=== PATIENT | female | born 1940 ===

== ENCOUNTER 2021-06-21 07:51 | Emergency (ER) | payer OTHER ==
[~2021-06-21] VITALS: Ht 167.6 cm; Wt 66.2 kg
[2021-06-21] MEDS ORDERED: SODIUM CHLORIDE 0.9% 1,000 ML IV ONE (09:00)
[2021-06-21 10:52] LABS: Basophils # (auto) 0.1 10 ^3/uL (0-0.2); Basophils % (auto) 0.9 % (0.0-2.0); Eosinophils # (auto) 0 10 ^3/uL (0-0.8); Eosinophils % (auto) 0.7 % (0.0-7.0); Hematocrit 45.3 % (36.0-46.0); Hemoglobin 15.1 g/dL (12.2-16.2); Lymphocytes # (auto) 1.1 10 ^3/uL (0.4-5.4); Lymphocytes % (auto) 19.3 % (10.0-50.0); Mean Corpuscular Hemoglobin 30.6 pg (28.0-32.0); Mean Corpuscular Hgb Conc. 33.4 g/dL (32.0-36.0); Mean Corpuscular Volume 91.6 fL (80.0-100.0); Monocytes # (auto) 0.4 10 ^3/uL (0-1.3); Monocytes % (auto) 6.5 % (0.0-12.0); Neutrophils % (auto) 72.6 % (37.0-80.0); Nucleated Red Blood Cells % 0.3 %; Red Blood Cells 4.94 10^6/uL (4.0-5.20); Red Cell Distribution Width 12.9 % (11.8-14.3); White Blood Cell 5.5 10^3/uL (4.4-10.8)
[2021-06-21] MEDS ORDERED: HYDROcodone-ACET 5/325MG TAB PO ONE (11:00)
[2021-06-21] MEDS ORDERED: cloNIDine HCL 0.1 MG TAB PO ONE (11:00)
[2021-06-21 11:46] LABS: Potassium 4.6 mmol/L (3.5-5.1)
[2021-06-21 12:00] LABS: Albumin 3.2 g/dL (3.4-5.0); BUN/Creatinine Ratio 12.5; Bilirubin, Total 0.6 mg/dL (0.2-1.0); Calcium 9.1 mg/dL (8.5-10.1); Total Protein 8.2 g/dL (6.4-8.2)
[2021-06-21 13:49] LABS: Urine Bacteria NONE SEEN /hpf (None Seen); Urine Blood Negative /uL (Negative); Urine Specific Gravity 1.007 (1.001-1.035); Urine WBC 37 /hpf (0 - 5)
[2021-06-21] MEDS ORDERED: methylPREDNISolone SOD SUCC 125 MG/2 ML VL IV ONE (14:30)
[2021-06-21] MEDS ORDERED: cefTRIAXone 1GM/50ML D5W 50 ML IV ONE (14:30)
[2021-06-21] MEDS ORDERED: LEVO-28 PO (14:30)
[2021-06-21] MEDS ORDERED: PRED1PAK9 PO (14:30)
[2021-06-21 15:05] VITALS: BP 173/103
== END 2021-06-21 15:52 | disposition home or self-care (01) ==
LOC: EDBD 07:51 → ER 07:51
DX: J18.9 Pneumonia, unspecified organism (principal); J44.9 Chronic obstructive pulmonary disease, unspecified; I10 Essential (primary) hypertension; Z90.710 Acquired absence of both cervix and uterus; Z20.822 Contact with and (suspected) exposure to COVID-19
CPT/HCPCS: 36415; 71045; 71250; 80053; 81001; 84484; 85025; 87426; 93005; 96365; 96375; 99285; J0696; J2930

== ENCOUNTER 2022-06-07 18:08 | Emergency (ER) | payer OTHER ==
[~2022-06-07] VITALS: Ht 154.9 cm; Wt 68.1 kg
[~2022-06-07 18:08] MED LIST: LEVO-28 PO; PRED1PAK9 PO
[2022-06-07] MEDS ORDERED: IPRATROPIUM BROM 0.5 MG/2.5ML INH SOL HHN ONE (18:45)
[2022-06-07] MEDS ORDERED: levoFLOXacin 500MG 100 ML IV ONE (18:45)
[2022-06-07] MEDS ORDERED: FUROSEMIDE 100 MG/10ML VIAL IV ONE (18:45)
[2022-06-07] MEDS ORDERED: methylPREDNISolone SOD SUCC 125 MG/2 ML VL IV ONE (18:45)
[2022-06-07] MEDS ORDERED: ALBUTEROL SULF 2.5 MG/0.5ML(0.5%) NEB SOLN HHN ONE (18:45)
[2022-06-07] MEDS ORDERED: NITROGLYCERIN 0.2MG/HR TOPICAL PATCH TD ONE (18:45)
[2022-06-07 19:48] LABS: Hematocrit 45.1 % (36.0-46.0); Hemoglobin 14.6 g/dL (12.2-16.2); Mean Corpuscular Hemoglobin 28.9 pg (28.0-32.0); Mean Corpuscular Hgb Conc. 32.5 g/dL (32.0-36.0); Mean Corpuscular Volume 89.1 fL (80.0-100.0); Red Blood Cells 5.06 10^6/uL (4.0-5.20); White Blood Cell 4.6 10^3/uL (4.4-10.8)
[2022-06-07 19:57] LABS: Band Neutrophils % (manual) 0; Basophils % (manual) 0 (0.0-2.0); Blast Cells 0; Eosinophils % (manual) 0 (0-7); Metamyelocytes % 0; Myelocytes % 0; Promyelocytes % 0; Reactive Lymphocytes 0
[2022-06-07 20:36] LABS: Lymphocytes % (manual) 20 (10.0-50.0); Monocytes % (manual) 9 (0-12)
[2022-06-07 21:42] LABS: Chloride 85 mmol/L (98-107); Potassium 5.2 mmol/L (3.5-5.1); Sodium 121 mmol/L (136-145)
[2022-06-07 21:43] LABS: Alkaline Phosphatase 58 U/L (45-117); Anion Gap 6 (5-15); BUN/Creatinine Ratio 24.2; Blood Urea Nitrogen 15 mg/dL (7-18); Carbon Dioxide 30 mmol/L (21-32); GFR African American 119 mL/min; GFR Non-African American 98 mL/min; Glucose 102 mg/dL (74-106)
[2022-06-07 21:45] LABS: Alanine Aminotransferase 33 U/L (13-56); Aspartate Aminotransferase 27 U/L (15-37)
[2022-06-07 21:49] LABS: Bilirubin, Total 0.5 mg/dL (0.2-1.0); Calcium 8.9 mg/dL (8.5-10.1); Total Protein 6.6 g/dL (6.4-8.2)
[2022-06-07 21:50] LABS: Albumin 2.6 g/dL (3.4-5.0)
[2022-06-07 23:06] LABS: Urine Bacteria FEW /hpf (None Seen); Urine Blood Negative /uL (Negative); Urine Specific Gravity 1.005 (1.001-1.035); Urine WBC <1 /hpf (0 - 5)
[2022-06-08 04:54] LABS: Potassium 4.4 mmol/L (3.5-5.1)
[2022-06-08 05:00] LABS: Albumin 2.9 g/dL (3.4-5.0); BUN/Creatinine Ratio 23.3; Bilirubin, Total 0.7 mg/dL (0.2-1.0); Calcium 8.9 mg/dL (8.5-10.1); Total Protein 7.3 g/dL (6.4-8.2)
[2022-06-08] MEDS ORDERED: SODIUM CHLORIDE 0.9% 1,000 ML IV ONE (05:00)
[2022-06-08] MEDS ORDERED: methylPREDNISolone SOD SUCC 125 MG/2 ML VL IV ONE (06:45)
[2022-06-08] MEDS ORDERED: ALBUTEROL SULF 2.5 MG/0.5ML(0.5%) NEB SOLN NEB ONE (06:45)
[2022-06-08] MEDS ORDERED: IPRATROPIUM BROM 0.5 MG/2.5ML INH SOL NEB ONE (06:45)
[2022-06-08 09:36] LABS: Anion Gap 7 (5-15); BUN/Creatinine Ratio 18.1; Blood Urea Nitrogen 13 mg/dL (7-18); Calcium 8.6 mg/dL (8.5-10.1); Carbon Dioxide 34 mmol/L (21-32); Chloride 86 mmol/L (98-107); GFR African American 100 mL/min; GFR Non-African American 83 mL/min; Glucose 129 mg/dL (74-106); Potassium 4.5 mmol/L (3.5-5.1); Sodium 127 mmol/L (136-145)
[2022-06-08] MEDS: ALBUTEROL SULF 2.5 MG/0.5ML(0.5%) NEB SOLN NEB SCH ×2 (10:00→14:00)
[2022-06-08] MEDS ORDERED: LEVO500T31 PO (12:57)
[2022-06-08] MEDS ORDERED: PRED20TA2 PO (12:57)
[2022-06-08] MEDS ORDERED: MORPHINE SULF 30 mg ER tab PO ONE (14:30)
[2022-06-08 19:55] VITALS: BP 132/76
== END 2022-06-08 20:15 ==
LOC: EDBD 18:08 → ER 18:08 → EDUNIT# 18:08 → ER 06-08 19:55
DX: J44.1 Chronic obstructive pulmonary disease with (acute) exacerbation (principal); E87.1 Hypo-osmolality and hyponatremia; R09.02 Hypoxemia; E86.1 Hypovolemia; J40 Bronchitis, not specified as acute or chronic; I10 Essential (primary) hypertension; Z88.0 Allergy status to penicillin; Z88.8 Allergy status to other drugs, medicaments and biological substances; Z90.710 Acquired absence of both cervix and uterus; Z20.822 Contact with and (suspected) exposure to COVID-19
CPT/HCPCS: 36415; 36600; 71045; 80048; 80053; 81001; 82805; 83605; 83880; 83930; 83935; 84300; 84484; 85007; 85027; 87040; 87426; 87804; 93005; 93970; 94640; 94660; 96361; 96365; 96366; 96375; 96376; 99285; J1940; J1956; J2930; J7030; J7644; 87077; 87186

== ENCOUNTER 2022-06-30 06:55 | Inpatient (IN) | payer OTHER ==
[~2022-06-30] VITALS: Ht 167.6 cm; Wt 71.5 kg
[~2022-06-30 06:55] MED LIST changes: +LEVO500T31 PO; +PRED20TA2 PO
[2022-06-30] MEDS ORDERED: ONDANSETRON HCL 4 MG/2 ML VIAL IV ONE (08:30)
[2022-06-30] MEDS ORDERED: SODIUM CHLORIDE 0.9% 1,000 ML IV ONE (08:30)
[2022-06-30 08:53] LABS: Basophils # (auto) 0 10 ^3/uL (0-0.2); Basophils % (auto) 0.2 % (0.0-2.0); Eosinophils # (auto) 0 10 ^3/uL (0-0.8); Eosinophils % (auto) 0.2 % (0.0-7.0); Hematocrit 48.9 % (36.0-46.0); Hemoglobin 15.4 g/dL (12.2-16.2); Lymphocytes # (auto) 0.5 10 ^3/uL (0.4-5.4); Mean Corpuscular Hemoglobin 28.3 pg (28.0-32.0); Mean Corpuscular Hgb Conc. 31.5 g/dL (32.0-36.0); Mean Corpuscular Volume 89.6 fL (80.0-100.0); Monocytes # (auto) 0.3 10 ^3/uL (0-1.3); Neutrophils % (auto) 85.6 % (37.0-80.0); Red Blood Cells 5.45 10^6/uL (4.0-5.20); Red Cell Distribution Width 15.7 % (11.8-14.3); White Blood Cell 5.8 10^3/uL (4.4-10.8)
[2022-06-30 09:09] LABS: Albumin 2.7 g/dL (3.4-5.0); BUN/Creatinine Ratio 17.2; Calcium 9.1 mg/dL (8.5-10.1)
[2022-06-30 09:17] LABS: Bilirubin, Total 2.3 mg/dL (0.2-1.0); Magnesium 2.3 mg/dL (1.6-2.6); Total Protein 7.3 g/dL (6.4-8.2)
[2022-06-30 09:20] LABS: Potassium 5.7 mmol/L (3.5-5.1)
[2022-06-30] MEDS ORDERED: metroNIDAZOLE 500MG/100ML 100 ML IV ONE (15:45)
[2022-06-30] MEDS ORDERED: SODIUM CHLORIDE 0.9% 500 ML IVB ONE (15:45)
[2022-06-30] MEDS ORDERED: FUROSEMIDE 40 MG/4 ML VIAL IV ONE ×2 (15:45→22:00)
[2022-06-30 16:31] LABS: Urine Bacteria FEW /hpf (None Seen); Urine Blood Negative /uL (Negative); Urine Hyaline Cast MOD /lpf (0 - 2); Urine Mucus FEW (None Seen); Urine Specific Gravity 1.017 (1.001-1.035); Urine WBC 5 /hpf (0 - 5)
[2022-06-30] MEDS ORDERED: SODIUM ZIRCONIUM CYCL 10 GM PAK PO ONE ×2 (20:00→22:30)
[2022-06-30] MEDS ORDERED: MORPHINE SULFATE INJ 2 MG/ml SYRG IV PRN (20:00)
[2022-06-30] MEDS ORDERED: IPRATROPIUM BROM 0.5 MG/2.5ML INH SOL NEB PRN (20:00)
[2022-06-30] MEDS ORDERED: ALBUTEROL SULF 2.5 MG/0.5ML(0.5%) NEB SOLN NEB PRN (20:00)
[2022-06-30] MEDS ORDERED: NITROGLYCERIN 0.4 MG SL TAB SL PRN (20:00)
[2022-06-30] MEDS: HEPARIN SODIUM (PORCINE) 5000 UNITS/ML 1ML VIAL SC SCH (22:01)
[2022-06-30 22:02] VITALS: BP 98/55
[2022-06-30] MEDS ORDERED: ACETAMINOPHEN 500 MG TAB PO PRN (22:30)
[2022-06-30] MEDS ORDERED: ALBUTEROL SULF HFA 90MCG INH 200DOSE IN PRN (22:30)
[2022-06-30] MEDS: DOXYCYCLINE 100MG/250ML 250 ML IV SCH (23:11)
[2022-06-30] MEDS ORDERED: REMDESIVIR PER PHARMACY 0 ML IV SCH (23:30)
[2022-06-30] MEDS: ALBUTEROL SULF 2.5 MG/0.5ML(0.5%) NEB SOLN NEB SCH (23:30)
[2022-06-30 23:59] LABS: Basophils # (auto) 0 10 ^3/uL (0-0.2); Basophils % (auto) 0.1 % (0.0-2.0); Eosinophils # (auto) 0 10 ^3/uL (0-0.8); Eosinophils % (auto) 0.1 % (0.0-7.0); Hematocrit 50.8 % (36.0-46.0); Hemoglobin 15.5 g/dL (12.2-16.2); Lymphocytes # (auto) 0.4 10 ^3/uL (0.4-5.4); Lymphocytes % (auto) 5.3 % (10.0-50.0); Mean Corpuscular Hemoglobin 28.1 pg (28.0-32.0); Mean Corpuscular Hgb Conc. 30.5 g/dL (32.0-36.0); Mean Corpuscular Volume 91.9 fL (80.0-100.0); Monocytes # (auto) 0.6 10 ^3/uL (0-1.3); Monocytes % (auto) 8.4 % (0.0-12.0); Neutrophils # (auto) 6.3 10 ^3/uL (1.6-8.6); Neutrophils % (auto) 86.1 % (37.0-80.0); Nucleated Red Blood Cells % 1.1 %; Red Blood Cells 5.53 10^6/uL (4.0-5.20); White Blood Cell 7.3 10^3/uL (4.4-10.8)
[2022-07-01 00:01] LABS: Lactic Acid w/Reflex 2.4 mmol/L (0.4-2.0)
[2022-07-01 02:29] LABS: Thyroid Stimulating Hormone 1.19 uIU/mL (0.358-3.74)
[2022-07-01 03:38] LABS: Albumin 2.8 g/dL (3.4-5.0); Calcium 8.3 mg/dL (8.5-10.1); Magnesium 2.5 mg/dL (1.6-2.6)
[2022-07-01 03:47] LABS: BUN/Creatinine Ratio 23.5; CRP High Sensitivity 10.2 mg/dL (< 0.3); Total Protein 6.5 g/dL (6.4-8.2)
[2022-07-01 03:52] LABS: Potassium 6.1 mmol/L (3.5-5.1)
[2022-07-01 04:37] LABS: Albumin 2.6 g/dL (3.4-5.0); BUN/Creatinine Ratio 24.4; Calcium 8.2 mg/dL (8.5-10.1)
[2022-07-01 04:46] LABS: Bilirubin, Total 0.9 mg/dL (0.2-1.0); Total Protein 6.3 g/dL (6.4-8.2)
[2022-07-01 04:48] LABS: Potassium 5.7 mmol/L (3.5-5.1)
[2022-07-01 04:54] LABS: Basophils # (auto) 0 10 ^3/uL (0-0.2); Eosinophils # (auto) 0 10 ^3/uL (0-0.8); Lymphocytes # (auto) 0.3 10 ^3/uL (0.4-5.4); Monocytes # (auto) 0.4 10 ^3/uL (0-1.3)
[2022-07-01 04:56] LABS: Mean Corpuscular Volume 90.1 fL (80.0-100.0); Nucleated Red Blood Cells % 1.1 %
[2022-07-01 05:39] LABS: Basophils % (auto) 0.5 % (0.0-2.0); Hematocrit 46.5 % (36.0-46.0); Hemoglobin 14.2 g/dL (12.2-16.2); Lymphocytes % (auto) 6.1 % (10.0-50.0); Mean Corpuscular Hemoglobin 27.6 pg (28.0-32.0); Mean Corpuscular Hgb Conc. 30.7 g/dL (32.0-36.0); Monocytes % (auto) 7.5 % (0.0-12.0); Neutrophils # (auto) 4.9 10 ^3/uL (1.6-8.6); Neutrophils % (auto) 85.9 % (37.0-80.0); Red Blood Cells 5.16 10^6/uL (4.0-5.20); Red Cell Distribution Width 15.9 % (11.8-14.3); White Blood Cell 5.7 10^3/uL (4.4-10.8)
[2022-07-01] MEDS: ALBUTEROL SULF 2.5 MG/0.5ML(0.5%) NEB SOLN NEB SCH ×6 (05:45→23:08)
[2022-07-01] MEDS: metroNIDAZOLE 500MG/100ML 100 ML IV SCH ×4 (05:50→23:58)
[2022-07-01] MEDS ORDERED: ALBUTEROL MEDNEB 2.5 mg/3ml NEB ONE ×3 (06:38→23:06)
[2022-07-01] MEDS: IPRATROPIUM BROM 0.5 MG/2.5ML INH SOL NEB PRN ×2 (06:56→18:34)
[2022-07-01] MEDS ORDERED: DexAMETHasone SOD PHOS 10MG/1ML VIAL INJ IV ONE (10:00)
[2022-07-01] MEDS ORDERED: CHOLECALCIFEROL (VITD3) 2,000 UNIT CAP/TAB PO SCH (10:00)
[2022-07-01] MEDS ORDERED: ZINC SULFATE 220mg CAP or TAB PO SCH (10:00)
[2022-07-01] MEDS: BUDESONIDE (INHALATION) 0.5 MG/2 ML NEB NEB SCH ×2 (10:00→23:07)
[2022-07-01] MEDS ORDERED: BUDESONIDE (INHALATION) 180 MCG IH IN SCH (10:00)
[2022-07-01] MEDS ORDERED: FUROSEMIDE 100 MG/10ML VIAL IV ONE (11:30)
[2022-07-01] MEDS ORDERED: ALBUMIN 25% 50 ML IV ONE (11:30)
[2022-07-01] MEDS: ZINC SULFATE 220mg CAP or TAB PO SCH (11:51)
[2022-07-01] MEDS: ASCORBIC ACID 1,000 MG TAB PO SCH (11:51)
[2022-07-01] MEDS: DexAMETHasone SOD PHOS 10MG/1ML VIAL INJ IV SCH (11:51)
[2022-07-01] MEDS: CHOLECALCIFEROL (VITD3) 2,000 UNIT CAP/TAB PO SCH (11:52)
[2022-07-01] MEDS: HEPARIN SODIUM (PORCINE) 5000 UNITS/ML 1ML VIAL SC SCH ×2 (11:53→23:59)
[2022-07-01] MEDS: DOXYCYCLINE 100MG/250ML 250 ML IV SCH ×2 (11:55→23:58)
[2022-07-01] MEDS ORDERED: AMIODARONE HCL 150 MG in D5W 5% 100 ML IV ONE (14:00)
[2022-07-01] MEDS ORDERED: InsuLIN REG 1unit/0.01ml Soln (100units/ml) IV ONE (14:30)
[2022-07-01] MEDS ORDERED: CALCIUM GLUC 1,000mg/50ml-NS 50 ML IV ONE (14:30)
[2022-07-01] MEDS ORDERED: DEXTROSE (50%) 50ML SYRG IV ONE (14:30)
[2022-07-01] MEDS ORDERED: AMIODARONE 450mg/250ml AE 250 ML IV SCH (15:00)
[2022-07-01 18:23] LABS: INR 1.49 (0.9-1.15)
[2022-07-01 18:52] LABS: Anion Gap 8 (5-15); BUN/Creatinine Ratio 24.5; Blood Urea Nitrogen 40 mg/dL (7-18); Calcium 8.7 mg/dL (8.5-10.1); Carbon Dioxide 34 mmol/L (21-32); Chloride 85 mmol/L (98-107); GFR African American 39 mL/min; GFR Non-African American 32 mL/min; Glucose 150 mg/dL (74-106); Potassium 4.6 mmol/L (3.5-5.1); Sodium 127 mmol/L (136-145)
[2022-07-01] MEDS ORDERED: dilTIAZem 25 MG/5 ML VIAL IV ONE (21:15)
[2022-07-01] MEDS: METOPROLOL TARTRATE 25 MG TAB PO SCH (23:57)
[2022-07-02] MEDS ORDERED: ALBUTEROL MEDNEB 2.5 mg/3ml NEB ONE ×5 (02:08→21:56)
[2022-07-02] MEDS: ALBUTEROL SULF 2.5 MG/0.5ML(0.5%) NEB SOLN NEB SCH ×6 (02:28→22:06)
[2022-07-02] MEDS: IPRATROPIUM BROM 0.5 MG/2.5ML INH SOL NEB PRN (02:28)
[2022-07-02 04:59] LABS: Basophils # (auto) 0 10 ^3/uL (0-0.2); Basophils % (auto) 0.1 % (0.0-2.0); Eosinophils # (auto) 0 10 ^3/uL (0-0.8); Hematocrit 45.2 % (36.0-46.0); Hemoglobin 14.1 g/dL (12.2-16.2); Lymphocytes # (auto) 0.1 10 ^3/uL (0.4-5.4); Lymphocytes % (auto) 1.9 % (10.0-50.0); Mean Corpuscular Hemoglobin 28.1 pg (28.0-32.0); Mean Corpuscular Hgb Conc. 31.2 g/dL (32.0-36.0); Mean Corpuscular Volume 89.9 fL (80.0-100.0); Monocytes # (auto) 0.4 10 ^3/uL (0-1.3); Monocytes % (auto) 5.7 % (0.0-12.0); Neutrophils # (auto) 6.3 10 ^3/uL (1.6-8.6); Neutrophils % (auto) 92.3 % (37.0-80.0); Nucleated Red Blood Cells % 0.4 %; Red Blood Cells 5.03 10^6/uL (4.0-5.20); Red Cell Distribution Width 15.4 % (11.8-14.3); White Blood Cell 6.8 10^3/uL (4.4-10.8)
[2022-07-02 05:16] LABS: Albumin 2.6 g/dL (3.4-5.0); Anion Gap 11 (5-15); Blood Urea Nitrogen 40 mg/dL (7-18); Calcium 8.3 mg/dL (8.5-10.1); Carbon Dioxide 32 mmol/L (21-32); Chloride 86 mmol/L (98-107); Glucose 112 mg/dL (74-106); Potassium 5.5 mmol/L (3.5-5.1); Sodium 129 mmol/L (136-145)
[2022-07-02 05:18] LABS: Alanine Aminotransferase 981 U/L (13-56); Aspartate Aminotransferase 414 U/L (15-37); BUN/Creatinine Ratio 26.7; GFR African American 43 mL/min; GFR Non-African American 35 mL/min
[2022-07-02 05:20] LABS: Alkaline Phosphatase 69 U/L (45-117); Bilirubin, Total 0.9 mg/dL (0.2-1.0); Total Protein 6.4 g/dL (6.4-8.2)
[2022-07-02] MEDS: BUDESONIDE (INHALATION) 0.5 MG/2 ML NEB NEB SCH ×2 (06:18→22:06)
[2022-07-02] MEDS: metroNIDAZOLE 500MG/100ML 100 ML IV SCH ×3 (06:43→22:20)
[2022-07-02] MEDS: CHOLECALCIFEROL (VITD3) 2,000 UNIT CAP/TAB PO SCH (09:32)
[2022-07-02] MEDS: METOPROLOL TARTRATE 25 MG TAB PO SCH ×2 (09:33→22:00)
[2022-07-02] MEDS: DexAMETHasone SOD PHOS 10MG/1ML VIAL INJ IV SCH (09:33)
[2022-07-02] MEDS: HEPARIN SODIUM (PORCINE) 5000 UNITS/ML 1ML VIAL SC SCH (09:34)
[2022-07-02] MEDS: PANTOPRAZOLE 40 MG TAB PO SCH (09:49)
[2022-07-02] MEDS: ASCORBIC ACID 1,000 MG TAB PO SCH (09:49)
[2022-07-02] MEDS: ZINC SULFATE 220mg CAP or TAB PO SCH (09:49)
[2022-07-02] MEDS ORDERED: DRONEDARONE HCL 400 MG TAB PO SCH (10:00)
[2022-07-02] MEDS ORDERED: DEXTROSE (50%) 50ML SYRG IV ONE ×2 (10:15→14:30)
[2022-07-02] MEDS ORDERED: ALBUTEROL SULF 2.5 MG/0.5ML(0.5%) NEB SOLN NEB ONE (10:15)
[2022-07-02] MEDS ORDERED: InsuLIN REG 1unit/0.01ml Soln (100units/ml) IV ONE (10:15)
[2022-07-02] MEDS ORDERED: SODIUM ZIRCONIUM CYCL 10 GM PAK PO ONE (10:15)
[2022-07-02] MEDS ORDERED: REMDESIVIR PER PHARMACY 0 ML IV SCH (10:30)
[2022-07-02] MEDS: DOXYCYCLINE 100MG/250ML 250 ML IV SCH ×2 (10:41→23:30)
[2022-07-02] MEDS ORDERED: dilTIAZem 25 MG/5 ML VIAL IV ONE (12:45)
[2022-07-02 13:29] LABS: BUN/Creatinine Ratio 34.5; Potassium 3.1 mmol/L (3.5-5.1)
[2022-07-02 13:49] LABS: Calcium 5.1 mg/dL (8.5-10.1)
[2022-07-02] MEDS ORDERED: SODIUM ZIRCONIUM CYCL 10 GM PAK PO SCH (14:00)
[2022-07-02] MEDS ORDERED: AMIODARONE HCL 150 MG in D5W 5% 100 ML IV ONE (15:45)
[2022-07-02] MEDS ORDERED: AMIODARONE 450mg/250ml AE 250 ML IV SCH (16:00)
[2022-07-02] MEDS ORDERED: InsuLIN REG 1unit/0.01ml Soln (100units/ml) SC ONE (17:00)
[2022-07-02] MEDS ORDERED: ACCU-CHEK COMFORT CURVE STRIP VI ONE (17:00)
[2022-07-02] MEDS ORDERED: dilTIAZem 25 MG/5 ML VIAL IV PRN (19:45)
[2022-07-02 22:00] VITALS: BP 116/68
[2022-07-02] MEDS: AMIODARONE 450mg/250ml AE 250 ML IV SCH (22:10)
[2022-07-03] MEDS: ALBUTEROL SULF 2.5 MG/0.5ML(0.5%) NEB SOLN NEB SCH ×6 (02:11→22:46)
[2022-07-03] MEDS ORDERED: ALBUTEROL MEDNEB 2.5 mg/3ml NEB ONE ×5 (02:11→22:35)
[2022-07-03] MEDS: AMIODARONE 450mg/250ml AE 250 ML IV SCH (04:43)
[2022-07-03 05:00] VITALS: BP 143/83
[2022-07-03] MEDS: metroNIDAZOLE 500MG/100ML 100 ML IV SCH (05:45)
[2022-07-03] MEDS: IPRATROPIUM BROM 0.5 MG/2.5ML INH SOL NEB PRN ×3 (07:53→13:46)
[2022-07-03 08:30] VITALS: BP 136/82
[2022-07-03 08:57] LABS: Basophils # (auto) 0 10 ^3/uL (0-0.2); Basophils % (auto) 0.5 % (0.0-2.0); Eosinophils # (auto) 0.2 10 ^3/uL (0-0.8); Eosinophils % (auto) 3.2 % (0.0-7.0); Hematocrit 46.5 % (36.0-46.0); Hemoglobin 13.9 g/dL (12.2-16.2); Lymphocytes # (auto) 0.2 10 ^3/uL (0.4-5.4); Lymphocytes % (auto) 2.5 % (10.0-50.0); Mean Corpuscular Hemoglobin 28.1 pg (28.0-32.0); Mean Corpuscular Hgb Conc. 29.9 g/dL (32.0-36.0); Mean Corpuscular Volume 93.7 fL (80.0-100.0); Monocytes # (auto) 0.7 10 ^3/uL (0-1.3); Neutrophils # (auto) 6.4 10 ^3/uL (1.6-8.6); Neutrophils % (auto) 84.8 % (37.0-80.0); Nucleated Red Blood Cells % 0.2 %; Red Blood Cells 4.96 10^6/uL (4.0-5.20); Red Cell Distribution Width 16.2 % (11.8-14.3); White Blood Cell 7.6 10^3/uL (4.4-10.8)
[2022-07-03] MEDS: DexAMETHasone SOD PHOS 10MG/1ML VIAL INJ IV SCH (09:23)
[2022-07-03] MEDS: DOXYCYCLINE 100MG/250ML 250 ML IV SCH (09:23)
[2022-07-03 09:34] LABS: Chloride 92 mmol/L (98-107); Sodium 129 mmol/L (136-145)
[2022-07-03] MEDS ORDERED: BUDESONIDE (INHALATION) 0.5 MG/2 ML NEB ONE (09:59)
[2022-07-03] MEDS: ASCORBIC ACID 1,000 MG TAB PO SCH (10:00)
[2022-07-03] MEDS: PANTOPRAZOLE 40 MG TAB PO SCH (10:00)
[2022-07-03] MEDS: CHOLECALCIFEROL (VITD3) 2,000 UNIT CAP/TAB PO SCH (10:00)
[2022-07-03] MEDS: ZINC SULFATE 220mg CAP or TAB PO SCH (10:00)
[2022-07-03] MEDS: METOPROLOL TARTRATE 25 MG TAB PO SCH ×2 (10:00→22:06)
[2022-07-03 10:03] LABS: Alanine Aminotransferase 744 U/L (13-56); Albumin 2.6 g/dL (3.4-5.0); Alkaline Phosphatase 64 U/L (45-117); Anion Gap 9 (5-15); Aspartate Aminotransferase 298 U/L (15-37); Blood Urea Nitrogen 31 mg/dL (7-18); Calcium 8.3 mg/dL (8.5-10.1); Carbon Dioxide 28 mmol/L (21-32); GFR African American 71 mL/min; GFR Non-African American 59 mL/min; Glucose 123 mg/dL (74-106); Total Protein 6.2 g/dL (6.4-8.2)
[2022-07-03] MEDS: BUDESONIDE (INHALATION) 0.5 MG/2 ML NEB NEB SCH ×2 (10:53→18:53)
[2022-07-03 13:00] VITALS: BP 140/80
[2022-07-03 17:00] VITALS: BP 146/86
[2022-07-04] MEDS: ALBUTEROL SULF 2.5 MG/0.5ML(0.5%) NEB SOLN NEB SCH ×6 (02:00→23:40)
[2022-07-04 02:05] VITALS: BP 147/95
[2022-07-04] MEDS: AMIODARONE 450mg/250ml AE 250 ML IV SCH ×2 (02:28→20:44)
[2022-07-04 05:00] VITALS: BP 148/94
[2022-07-04] MEDS ORDERED: ALBUTEROL MEDNEB 2.5 mg/3ml NEB ONE ×4 (06:14→21:51)
[2022-07-04 06:36] LABS: Basophils # (auto) 0 10 ^3/uL (0-0.2); Basophils % (auto) 0.3 % (0.0-2.0); Eosinophils # (auto) 0.1 10 ^3/uL (0-0.8); Hematocrit 47.5 % (36.0-46.0); Hemoglobin 15.2 g/dL (12.2-16.2); Lymphocytes # (auto) 0.2 10 ^3/uL (0.4-5.4); Mean Corpuscular Hemoglobin 28.6 pg (28.0-32.0); Mean Corpuscular Volume 89.3 fL (80.0-100.0); Monocytes # (auto) 0.7 10 ^3/uL (0-1.3); Monocytes % (auto) 8.7 % (0.0-12.0); Neutrophils # (auto) 7.2 10 ^3/uL (1.6-8.6); Nucleated Red Blood Cells % 0.5 %; Red Blood Cells 5.32 10^6/uL (4.0-5.20); Red Cell Distribution Width 15.8 % (11.8-14.3); White Blood Cell 8.2 10^3/uL (4.4-10.8)
[2022-07-04] MEDS: IPRATROPIUM BROM 0.5 MG/2.5ML INH SOL NEB PRN ×5 (06:39→23:40)
[2022-07-04 06:46] LABS: Albumin 2.8 g/dL (3.4-5.0)
[2022-07-04 06:49] LABS: BUN/Creatinine Ratio 36.2; Calcium 8.9 mg/dL (8.5-10.1)
[2022-07-04 06:51] LABS: Bilirubin, Total 1.4 mg/dL (0.2-1.0); Total Protein 6.2 g/dL (6.4-8.2)
[2022-07-04 06:59] LABS: Potassium 4.2 mmol/L (3.5-5.1)
[2022-07-04 08:36] VITALS: BP 149/88
[2022-07-04] MEDS: DexAMETHasone SOD PHOS 10MG/1ML VIAL INJ IV SCH (09:24)
[2022-07-04] MEDS: PANTOPRAZOLE 40 MG TAB PO SCH (09:25)
[2022-07-04] MEDS: CHOLECALCIFEROL (VITD3) 2,000 UNIT CAP/TAB PO SCH (09:25)
[2022-07-04] MEDS: ASCORBIC ACID 1,000 MG TAB PO SCH (09:25)
[2022-07-04] MEDS: ZINC SULFATE 220mg CAP or TAB PO SCH (09:25)
[2022-07-04] MEDS: METOPROLOL TARTRATE 25 MG TAB PO SCH ×3 (09:26→22:18)
[2022-07-04] MEDS: BUDESONIDE (INHALATION) 0.5 MG/2 ML NEB NEB SCH ×2 (10:13→23:41)
[2022-07-04 10:19] LABS: Hepatitis B Surface Antibody Negative (Negative)
[2022-07-04 13:01] LABS: Hepatitis A Ab IgM Negative; Hepatitis B Core IgM Negative
[2022-07-04 13:02] LABS: Hepatitis C Antibody Negative (Negative)
[2022-07-04 13:10] VITALS: BP 142/87
[2022-07-04 16:59] VITALS: BP 139/88
[2022-07-04 22:00] VITALS: BP 159/97
[2022-07-05] MEDS ORDERED: ALBUTEROL MEDNEB 2.5 mg/3ml NEB ONE ×4 (01:47→17:43)
[2022-07-05] MEDS: ALBUTEROL SULF 2.5 MG/0.5ML(0.5%) NEB SOLN NEB SCH ×4 (02:00→18:52)
[2022-07-05 05:00] VITALS: BP 154/95
[2022-07-05] MEDS: IPRATROPIUM BROM 0.5 MG/2.5ML INH SOL NEB PRN ×3 (06:25→18:52)
[2022-07-05 07:03] LABS: Basophils # (auto) 0 10 ^3/uL (0-0.2); Basophils % (auto) 0.2 % (0.0-2.0); Eosinophils # (auto) 0 10 ^3/uL (0-0.8); Hematocrit 48.7 % (36.0-46.0); Hemoglobin 15.3 g/dL (12.2-16.2); Lymphocytes # (auto) 0.4 10 ^3/uL (0.4-5.4); Lymphocytes % (auto) 4.8 % (10.0-50.0); Mean Corpuscular Hemoglobin 27.8 pg (28.0-32.0); Mean Corpuscular Hgb Conc. 31.5 g/dL (32.0-36.0); Mean Corpuscular Volume 88.3 fL (80.0-100.0); Monocytes # (auto) 0.6 10 ^3/uL (0-1.3); Monocytes % (auto) 8.7 % (0.0-12.0); Neutrophils # (auto) 6.4 10 ^3/uL (1.6-8.6); Neutrophils % (auto) 86.3 % (37.0-80.0); Nucleated Red Blood Cells % 0.4 %; Red Blood Cells 5.52 10^6/uL (4.0-5.20); Red Cell Distribution Width 15.5 % (11.8-14.3); White Blood Cell 7.4 10^3/uL (4.4-10.8)
[2022-07-05 07:50] LABS: Potassium 4.5 mmol/L (3.5-5.1)
[2022-07-05 07:57] LABS: Albumin 2.4 g/dL (3.4-5.0); BUN/Creatinine Ratio 35.3; Calcium 8.6 mg/dL (8.5-10.1)
[2022-07-05 08:00] LABS: Bilirubin, Total 1.1 mg/dL (0.2-1.0); Total Protein 5.7 g/dL (6.4-8.2)
[2022-07-05 08:36] VITALS: BP 135/80
[2022-07-05] MEDS ORDERED: ENOXAPARIN SOD 80 MG/0.8ML SYRINGE SC SCH (10:00)
[2022-07-05] MEDS: PANTOPRAZOLE 40 MG TAB PO SCH ×2 (10:00→10:54)
[2022-07-05] MEDS: METOPROLOL TARTRATE 25 MG TAB PO SCH ×2 (10:00→10:55)
[2022-07-05] MEDS: ASCORBIC ACID 1,000 MG TAB PO SCH ×2 (10:00→10:55)
[2022-07-05] MEDS: BUDESONIDE (INHALATION) 0.5 MG/2 ML NEB NEB SCH (10:12)
[2022-07-05] MEDS: CHOLECALCIFEROL (VITD3) 2,000 UNIT CAP/TAB PO SCH (10:54)
[2022-07-05] MEDS: DexAMETHasone SOD PHOS 10MG/1ML VIAL INJ IV SCH (10:55)
[2022-07-05] MEDS: ZINC SULFATE 220mg CAP or TAB PO SCH ×2 (10:55→11:06)
[2022-07-05] MEDS: AMIODARONE HCL 200 MG TAB PO SCH ×2 (10:55→11:05)
[2022-07-05 13:00] VITALS: BP 128/84
[2022-07-05 17:00] VITALS: BP 146/93
== END 2022-07-05 20:00 | DRG 177 ==
LOC: ER 06:55 → EDBD 06:55 → TELE 20:16 → INTOOBSV 20:16 → OBSVTOIN 07-02 08:49 → TELE-WESTW 07-02 20:48
PROVIDERS: ADMIT Hospitalist; ATTEND Hospitalist
PROC: XW033E5 Introduction of Remdesivir Anti-infective into Peripheral Vein, Percutaneous Approach, New Technology Group 5 (ICD-10-PCS; principal; 2022-06-30)
PROC: 05HB33Z Insertion of Infusion Device into Right Basilic Vein, Percutaneous Approach (ICD-10-PCS; 2022-07-01)
PROC: B54MZZA Ultrasonography of Right Upper Extremity Veins, Guidance (ICD-10-PCS; 2022-07-01)
DX: U07.1 COVID-19 (principal); J12.82 Pneumonia due to coronavirus disease 2019; J96.21 Acute and chronic respiratory failure with hypoxia; K72.00 Acute and subacute hepatic failure without coma; E44.0 Moderate protein-calorie malnutrition; I47.1 Supraventricular tachycardia; I48.92 Unspecified atrial flutter; J44.0 Chronic obstructive pulmonary disease with (acute) lower respiratory infection; J44.1 Chronic obstructive pulmonary disease with (acute) exacerbation; J90 Pleural effusion, not elsewhere classified; J98.11 Atelectasis; N17.9 Acute kidney failure, unspecified; I13.0 Hypertensive heart and chronic kidney disease with heart failure and stage 1 through stage 4 chronic kidney disease, or unspecified chronic kidney disease; N18.9 Chronic kidney disease, unspecified; E66.9 Obesity, unspecified; I48.0 Paroxysmal atrial fibrillation; M19.90 Unspecified osteoarthritis, unspecified site; I50.9 Heart failure, unspecified; E87.5 Hyperkalemia; K80.20 Calculus of gallbladder without cholecystitis without obstruction; M06.9 Rheumatoid arthritis, unspecified; Z96.643 Presence of artificial hip joint, bilateral; Z88.0 Allergy status to penicillin; Z90.710 Acquired absence of both cervix and uterus; Z68.25 Body mass index [BMI] 25.0-25.9, adult; Z88.8 Allergy status to other drugs, medicaments and biological substances
CPT/HCPCS: 36415; 71045; 74176; 80048; 80053; 80329; 81001; 82390; 82728; 82962; 83520; 83605; 83615; 83735; 83880; 84443; 84484; 84550; 85025; 85301; 85379; 85610; 85652; 86038; 86141; 86160; 86256; 86431; 86704; 86705; 86706; 86709; 86803; 87340; 87426; 92610; 93005; 93306; 93970; 94640; 94644; 96361; 96365; 96367; 96375; 96376; G0378; J1100; J1815; J2405; J3490; J7060